=== PATIENT | male | born 2000 | race Two or more races ===

== ENCOUNTER 2022-09-24 12:09 | Emergency (ER) | payer MEDICAID, OTHER ==
[~2022-09-24] VITALS: Ht 172.7 cm; Wt 76.0 kg
[2022-09-24 13:29] LABS: Basophils # (auto) 0 10 ^3/uL (0-0.2); Basophils % (auto) 0.5 % (0.0-2.0); Eosinophils # (auto) 0.1 10 ^3/uL (0-0.8); Eosinophils % (auto) 1.8 % (0.0-7.0); Hematocrit 43.2 % (41.0-53.0); Hemoglobin 14.7 g/dL (13.5-17.5); Lymphocytes # (auto) 1.1 10 ^3/uL (0.4-5.4); Lymphocytes % (auto) 31.6 % (10.0-50.0); Mean Corpuscular Hemoglobin 31.6 pg (28.0-32.0); Mean Corpuscular Volume 92.9 fL (80.0-100.0); Monocytes # (auto) 0.5 10 ^3/uL (0-1.3); Monocytes % (auto) 14.1 % (0.0-12.0); Neutrophils # (auto) 1.9 10 ^3/uL (1.6-8.6); Nucleated Red Blood Cells % 0.1 %; Red Blood Cells 4.65 10^6/uL (4.5-5.90); Red Cell Distribution Width 13.4 % (11.8-14.3); White Blood Cell 3.6 10^3/uL (4.4-10.8)
[2022-09-24] MEDS ORDERED: IOHEXOL 300 MG/ML 100ML BOTTLE IJ ONE (13:30)
[2022-09-24 13:49] LABS: Albumin 3.5 g/dL (3.4-5.0); BUN/Creatinine Ratio 10.6 (10.0-20.0); Bilirubin, Total 0.9 mg/dL (0.2-1.0); Calcium 8.5 mg/dL (8.5-10.1); Total Protein 6.8 g/dL (6.4-8.2)
[2022-09-24 13:51] LABS: Potassium 4.5 mmol/L (3.5-5.1)
[2022-09-24] MEDS ORDERED: CYCLOBENZAPRINE HCL 10 MG TAB PO ONE (15:00)
[2022-09-24] MEDS ORDERED: KETOROLAC TROMETH 30 MG/ML 1ML VIAL IV ONE (15:00)
[2022-09-24] MEDS ORDERED: CYCL-611 PO (15:32)
[2022-09-24 16:01] VITALS: BP 120/44
== END 2022-09-24 16:05 | disposition home or self-care (01) ==
LOC: ER 12:09
DX: M62.838 Other muscle spasm (principal); M79.651 Pain in right thigh; M54.2 Cervicalgia; M25.511 Pain in right shoulder; V26.49XA Other motorcycle driver injured in collision with other nonmotor vehicle in traffic accident, initial encounter; Y93.55 Activity, bike riding; Y92.89 Other specified places as the place of occurrence of the external cause; Y99.8 Other external cause status
CPT/HCPCS: 36415; 70450; 71260; 72125; 73552; 73562; 73590; 74177; 80053; 85025; 96374; 99285; J1885; Q9967